=== PATIENT | female | born 2000 | race Two or more races ===

== ENCOUNTER 2022-10-02 01:48 | Emergency (ER) | payer BC ==
[~2022-10-02] VITALS: Ht 157.5 cm; Wt 68.0 kg
[2022-10-02] MEDS ORDERED: PEPCID AC20 MG PO (04:53)
[2022-10-02] MEDS ORDERED: ONDANSETRON ODT8 MG PO (04:53)
== END 2022-10-02 04:57 | disposition home or self-care (01) ==
LOC: ER 01:48
DX: K52.9 Noninfective gastroenteritis and colitis, unspecified (principal); R11.2 Nausea with vomiting, unspecified; R10.9 Unspecified abdominal pain; Z20.822 Contact with and (suspected) exposure to COVID-19